=== PATIENT | male | born 1960 | race Caucasian/White ===

== ENCOUNTER → 2023-07-21 14:24 | Outpatient (BNVA) | payer MEDICARE, MEDICAID, SELFPAY | PROVIDERS: PCP Specialist; Visit Provider Podiatrist Foot & Ankle Surgery | DX: L60.8 Other nail disorders (principal); B35.1 Tinea unguium | CPT/HCPCS: 11721; 99203 ==

== ENCOUNTER → 2023-12-25 10:41 | Outpatient (BNVA) | payer MEDICARE, MEDICAID, SELFPAY | PROVIDERS: PCP Specialist; Visit Provider Podiatrist Foot & Ankle Surgery | DX: B35.1 Tinea unguium | CPT/HCPCS: 99213 ==